=== PATIENT | male | born 1980 | race Caucasian/White ===

== ENCOUNTER 2018-01-15 15:17 | Emergency (ER) | payer OTHER ==
[2018-01-15] MEDS ORDERED: DIPH,PERTUS(ACELL)TETVAC-LF 0.5 ML VIAL IM ONE (16:14)
[2018-01-15] MEDS ORDERED: IBUPROFEN 600 MG TAB PO STA (16:14)
--- NOTE | 2018-01-15 16:30 | XR ---
EXAMINATION TYPE: XR tibia fibula LT DATE OF EXAM: 01/15/2018 CLINICAL HISTORY: Left sided tibia and fibular pain after injury with medial lower extremity lacerati ons. TECHNIQUE: Two views of the left leg are obtained. COMPARISON: None. FINDINGS: Subcutaneous emphysema is seen of the medial soft tissues of the lower extremity overlying the proximal and mid tibial diaphysis. No radiopaque foreign body is identified. No osseous laceratio n. There is no acute fracture or dislocation seen in the left tibia or fibula. The left knee and ank le joints appear within normal limits. The overlying soft tissue appears unremarkable. IMPRESSION: Subcutaneous emphysema corresponding to the patient's known area medial lower extremity l aceration with no radiopaque foreign body, osseous laceration or acute fracture or dislocation of the left tibia or fibula.
--- NOTE | 2018-01-15 17:03 | ED ---
General Adult HPI - General Chief complaint: Wound/Laceration Stated complaint: Leg laceration Time Seen by Provider: 01/15/18 15:51 Source: patient, RN notes reviewed Mode of arrival: wheelchair Limitations: no limitations - History of Present Illness Initial comments: 38-year-old male presents to the emergency department for a chief complaint of puncture wound about one hour ago. Patient states he walked into a saws all. Patient states the saws all was off but it punctured his leg. Patient states it is painful to walk on and tender to touch. Patient denies any other injuries. Patient does not think his tetanus is up-to-date.Patient has no other complaints at this time including shortness of breath, chest pain, abdominal pain, nausea or vomiting, headache, or visual changes. - Related Data Previous Rx's Medication Instructions Recorded Cephalexin [Keflex] 500 mg PO Q8H 10 Days cap 01/15/18 Ibuprofen [Motrin] 600 mg PO Q8HR PRN #20 tab 01/15/18 Allergies Allergy/AdvReac Type Severity Reaction Status Date / Time No Known Allergies Allergy Verified 01/15/18 15:48 Review of Systems ROS Statement: Those systems with pertinent positive or pertinent negative responses have been documented in the HPI. ROS Other: All systems not noted in ROS Statement are negative. Past Medical History Past Medical History: No Reported History History of Any Multi-Drug Resistant Organisms: None Reported Past Surgical History: No Surgical Hx Reported Past Psychological History: No Psychological Hx Reported Smoking Status: Never smoker Past Alcohol Use History: None Reported Past Drug Use History: None Reported General Exam Limitations: no limitations General appearance: alert, in no apparent distress Head exam: Present: atraumatic, normocephalic, normal inspection Eye exam: Present: normal appearance. Absent: scleral icterus, conjunctival injection ENT exam: Present: normal exam, mucous membranes moist Neck exam: Present: normal inspection, full ROM. Absent: tenderness, meningismus, lymphadenopathy Respiratory exam: Present: normal lung sounds bilaterally. Absent: respiratory distress, wheezes, rales, rhonchi, stridor Cardiovascular Exam: Present: regular rate, normal rhythm, normal heart sounds. Absent: systolic murmur, diastolic murmur, rubs, gallop, clicks Extremities exam: Present: full ROM (Patient has full range of motion of the left knee and ankle), tenderness (Tenderness to the puncture wound site no tenderness elsewhere in the left lower extremity), normal capillary refill ( Capillary refill less than 2 seconds and pedal pulse 2+ in the left lower extremity), other (There is a 1 cm puncture wound in the left medial calf. It is well approximated already. No drainage from the wound. No foreign bodies evident. No signs of infection such as spreading redness.). Absent: joint swelling Course Vital Signs 01/15/18 01/15/18 15:45 17:30 Temperature 98.6 F 97.8 F Pulse Rate 68 78 Respiratory 18 20 Rate Blood Pressure 109/71 138/70 O2 Sat by Pulse 98 98 Oximetry Medical Decision Making - Medical Decision Making 38-year-old male presents to the emergency department for a chief complaint of puncture wounds. It happened about one hour ago when patient walked into a turned off saws all. Patient was given a tetanus in the emergency department. Patient has about a 1 cm puncture wound noted on the left calf. Patient has tenderness to the puncture wound. He is able to walk on it but it is painful. Full range of motion of the left knee. No signs of infection.X-ray of the left tib-fib shows subcutaneous emphysema corresponding to the patient's known area medial lower extremity laceration with no foreign body, osseous laceration, or acute fracture. Wound was irrigated with 1 L of saline. Patient was given IM Ancef in the emergency department. He was then given Keflex for 10 days outpatient. He was educated on signs of infection and to return if these occur. He will follow up with primary care. Disposition Clinical Impression: Puncture wound Disposition: HOME SELF-CARE Condition: Good Instructions: Puncture Wound (ED), RICE Therapy (ED) Additional Instructions: Please take antibiotic as directed. Please take Tylenol and Motrin for pain. Monitor for signs of infection such as spreading redness, drainage, fever and return if these occur. Return if you've any other worsening symptoms. Otherwise follow-up with primary care in 1-2 days. Prescriptions: Cephalexin [Keflex] 500 mg PO Q8H 10 Days cap Ibuprofen [Motrin] 600 mg PO Q8HR PRN #20 tab PRN Reason: Pain Is patient prescribed a controlled substance at d/c from ED?: No Referrals: Akbar Delgado MD [STAFF PHYSICIAN] - 1-2 days Time of Disposition: 17:01
[2018-01-15] MEDS ORDERED: ceFAZolin 1,000 MG VIAL IM STA (17:08)
[2018-01-15 17:30] VITALS: BP 138/70; PULSE 78; RESP 20; TEMP 97.8
== END 2018-01-15 17:42 | disposition home or self-care (01) ==
LOC: EC 15:17
DX: S81.832A Puncture wound without foreign body, left lower leg, initial encounter (principal); Z23 Encounter for immunization; W31.89XA Contact with other specified machinery, initial encounter
CPT/HCPCS: 73590; 90715; 99283; 96372; 90471; J0690